=== PATIENT | male | born 1975 | race Caucasian/White ===

== ENCOUNTER 2019-04-06 10:19 | Emergency (ER) | payer OTHER, SELFPAY ==
[2019-04-06 10:43] VITALS: BP 137/86; PULSE 83; RESP 14; TEMP 36.6; O2SAT 100
--- NOTE | 2019-04-06 10:58 | ED.URI ---
HPI - URI/Sore Throat General Chief Complaint: Upper Respiratory Infection Stated Complaint: Cold Time Seen by Provider: 04/06/19 10:58 Source: patient and RN notes reviewed History of Present Illness HPI Narrative: Patient is a 43-year-old male that presents the urgent care with complaints of cold . Patient also reports of congestion for 1 week and slight fatigue. Patient states he developed a cough yesterday and noticed some shortness of breath last night. Patient denies any wheezing, fever, nausea, vomiting. Patient states he is used 1 dose of DayQuil and 1 spray of Flonase since his symptoms started. No other acute complaints. No distress noted. Patient read the plan of care. Related Data Home Medications Medication Instructions Recorded Confirmed atorvastatin 10 mg tablet 10 mg PO DAILY 03/01/19 loratadine 10 mg tablet 10 mg PO DAILY 03/01/19 omeprazole 40 mg capsule,delayed 40 mg PO DAILY 03/01/19 release trazodone 100 mg tablet 100 mg PO DAILY tablet 03/01/19 verapamil 40 mg tablet 40 mg PO BID tablet 03/01/19 Allergies Allergy/AdvReac Type Severity Reaction Status Date / Time No Known Allergies Allergy Verified 04/06/19 11:05 Review of Systems Review of Systems: Narrative: CONSTITUTIONAL: Denies fever, chills, or sweats. EYES: Denies visual changes, redness, or discharge. ENT: Reports of nasal congestion and runny nose CARDIOVASCULAR: Denies chest pain, palpitations, or edema. RESPIRATORY: Reports of cough with intermittent shortness of breath GASTROINTESTINAL: Denies abdominal pain, nausea, vomiting, or diarrhea. GENITOURINARY: Denies dysuria or hematuria. SKIN: Denies rash or itching. MUSCULOSKELETAL: Denies back pain, joint pain, or myalgia. NEUROLOGIC: Denies headache, numbness, or weakness. All other systems reviewed are negative, except as documented in HPI. PMFSH Social History Social History (Reviewed 03/01/19 @ 15:04 by Eleanor Little [facility]) Smoking status: Never smoker Alcohol intake: current Comments At the time of my signature, I reviewed and agree with the nursing past medical, surgical, social, and family history. There is no relevant family history pertinent to the patient complaint. Exam Narrative: Exam Narrative: GENERAL: This is a well-nourished, well-developed patient, in no apparent distress. HEAD: normocephalic, atraumatic. EYES: PERRL. Sclera clear/white. Vision is grossly intact. EARS: External ears normal, auditory canals clear and without drainage, TMs normal without perforation. Hearing grossly intact. NOSE: External nose normal with no obvious nasal discharge, nares without redness, no rhinorrhea. THROAT: Mucous membranes moist, posterior pharynx clear. Moderate postnasal drainage NECK: Neck supple CARDIOVASCULAR: Regular rate and rhythm without murmurs, gallops, or rubs. RESPIRATORY: Clear to auscultation. Breath sounds equal bilaterally. No wheezes, rales, or rhonchi. SKIN: warm, intact with no suspicious lesions or rash, good texture and turgor. NEURO: awake, alert, and oriented to person, place and time. There were no obvious focal neurologic abnormalities. EXTREMITIES: No clubbing, cyanosis, or edema. Course Vital Signs Vital signs: Vital Signs Temperature 97.8 F 04/06/19 10:43 Pulse Rate 83 04/06/19 10:43 Respiratory Rate 14 04/06/19 10:43 Blood Pressure 137/86 04/06/19 10:43 Pulse Oximetry 100 04/06/19 10:43 Temperature 97.8 F 04/06/19 10:43 Pulse Rate 83 04/06/19 10:43 Respiratory Rate 14 04/06/19 10:43 Blood Pressure 137/86 04/06/19 10:43 Pulse Oximetry 100 04/06/19 10:43 Reviewed MDM - URI/Sore Throat MDM Narrative Medical decision making narrative: Patient is aware that there is nothing bacterial to treat such as pneumonia or bacterial sinusitis, at this time. Advised the patient to treat his viral upper respiratory symptoms with [id number] medication such as Claritin/Zyrtec and Flonase shashi
== END 2019-04-06 11:18 | disposition home or self-care (01) ==
PROVIDERS: Emergency Provider Nurse Practitioner Family; PCP Family Medicine
DX: J06.9 Acute upper respiratory infection, unspecified (principal); E78.00 Pure hypercholesterolemia, unspecified; K21.9 Gastro-esophageal reflux disease without esophagitis; F41.9 Anxiety disorder, unspecified; F32.9 Major depressive disorder, single episode, unspecified
CPT/HCPCS: 99211; G0463

== ENCOUNTER 2020-07-31 14:37 | Emergency (ER) | payer OTHER, SELFPAY ==
[2020-07-31 14:45] VITALS: BP 143/90; PULSE 78; RESP 16; TEMP 36.7; O2SAT 99
--- NOTE | 2020-07-31 14:52 | ED.BACK ---
HPI - Back Pain/Injury General Chief Complaint: Back Pain/Injury Stated Complaint: Lower back pain Time Seen by Provider: 07/31/20 14:52 Source: patient and RN notes reviewed History of Present Illness HPI Narrative: Patient is a 45-year-old male who presents the urgent care with complaints of low back pain. Patient states he has chronic low back pain and he has had multiple x-rays that showed arthritis in the past. Patient states that he went swimming last Tuesday which exacerbated the pain. Patient has been taking Tylenol and ibuprofen with minimal improvement. Denies of any falls or known injury. No other acute complaints. No acute distress noted. Patient aware of the plan of care. Some parts of this dictation were generated by voice recognition software and may contain typographical and/or grammatical inaccuracies. Related Data Allergies Allergy/AdvReac Type Severity Reaction Status Date / Time No Known Allergies Allergy Verified 04/06/19 11:05 Review of Systems Review of Systems: Narrative: CONSTITUTIONAL: Denies fever, chills, or sweats. EYES: Denies visual changes, redness, or discharge. ENT: Denies rhinorrhea, congestion, sore throat, or otalgia. CARDIOVASCULAR: Denies chest pain, palpitations, or edema. RESPIRATORY: Denies cough or dyspnea. GASTROINTESTINAL: Denies abdominal pain, nausea, vomiting, or diarrhea. GENITOURINARY: Denies dysuria or hematuria. SKIN: Denies rash or itching. MUSCULOSKELETAL: Reports of acute on chronic low back pain NEUROLOGIC: Denies headache, numbness, or weakness. All other systems reviewed are negative, except as documented in HPI. [facility] Past Medical History Medical History (Updated 07/31/20 @ 15:18 by DEN Kendrick) Situational stress Family History Family History Father Hypertension Family history of elevated blood lipids Family history of malignant neoplasm Family history of malignant neoplasm of esophagus Mother Hypertension Family history of elevated blood lipids Social History Social History Smoking status: Never smoker Alcohol intake: current Gender identity (if verbalized by the patient): Male Comments At the time of my signature, I reviewed and agree with the nursing past medical, surgical, social, and family history. There is no relevant family history pertinent to the patient complaint. Exam Narrative: Exam Narrative: GENERAL: This is a well-nourished, well-developed patient, in no apparent distress. HEAD: normocephalic, atraumatic. EYES: PERRL. Sclera clear/white. Vision is grossly intact. EARS: External ears normal NOSE: External nose normal with no obvious nasal discharge, nares without redness, no rhinorrhea. THROAT: Mucous membranes moist NECK: Neck supple CARDIOVASCULAR: Regular rate and rhythm without murmurs, gallops, or rubs. RESPIRATORY: Clear to auscultation. Breath sounds equal bilaterally. No wheezes, rales, or rhonchi. SKIN: warm, intact with no suspicious lesions or rash, good texture and turgor. NEURO: awake, alert, and oriented to person, place and time. There were no obvious focal neurologic abnormalities. EXTREMITIES: No clubbing, cyanosis, or edema. BACK: Mild right lumbar tenderness with positive right SLE Course Vital Signs Vital signs: Vital Signs Temperature 98.1 F 07/31/20 14:45 Pulse Rate 78 07/31/20 14:45 Respiratory Rate 16 07/31/20 14:45 Blood Pressure 143/90 H 07/31/20 14:45 Pulse Oximetry 99 07/31/20 14:45 Temperature 98.1 F 07/31/20 15:10 Pulse Rate 78 07/31/20 15:10 Respiratory Rate 16 07/31/20 15:10 Blood Pressure 143/90 H 07/31/20 15:10 Pulse Oximetry 99 07/31/20 15:10 Reviewed-patient is informed that they may have pre-hypertension or hypertension based on a blood pressure reading in the department. I recommend the patient call the primar
[2020-07-31 15:10] VITALS: BP 143/90; PULSE 78; RESP 16; TEMP 36.7; O2SAT 99
== END 2020-07-31 15:25 | disposition home or self-care (01) ==
PROVIDERS: Emergency Provider Nurse Practitioner Family; PCP Family Medicine
DX: S39.012A Strain of muscle, fascia and tendon of lower back, initial encounter (principal); X58.XXXA Exposure to other specified factors, initial encounter; Y93.11 Activity, swimming; M54.31 Sciatica, right side; E78.00 Pure hypercholesterolemia, unspecified; I10 Essential (primary) hypertension; K21.9 Gastro-esophageal reflux disease without esophagitis; F41.9 Anxiety disorder, unspecified; F32.9 Major depressive disorder, single episode, unspecified
CPT/HCPCS: 99213; G0463

== ENCOUNTER → 2021-03-03 15:19 | Outpatient (CLI) | payer OTHER, SELFPAY ==
--- NOTE | ~2021-03-03 | US_ITS ---
EXAMINATION: US soft tissue lower back EXAM DATE: 03/03/2021 15:45 INDICATION: R22.2 - Localized swelling, mass and lump, trunk. Back pain. TECHNIQUE: Multiple grayscale and Doppler images of the symptomatic right lower back region were obta ined (by a technologist who performed the scan) and subsequently reviewed. FINDINGS: Ultrasound evaluation of the right back area of concern demonstrates normal-appearing skin, subcutane ous fat, underlying paraspinal musculature. No encapsulated lipoma, mass or fluid collection is ident ified. IMPRESSION: Unremarkable ultrasound exam. Reviewed, dictated and finalized at location G. [facility] [employer]FFA[employer] SPECIALIST
== END ==
PROVIDERS: PCP Family Medicine; Visit Provider Family Medicine
DX: R22.2 Localized swelling, mass and lump, trunk (principal)
CPT/HCPCS: 76705

== ENCOUNTER → 2021-11-03 13:28 | Outpatient (CLI) | payer OTHER, SELFPAY ==
--- NOTE | ~2021-11-03 | XR_ITS ---
XR lumbar spine min 4V DATE: 11/03/2021 13:43 INDICATION: Low back pain, right side. No sciatica. TECHNIQUE: AP, lateral, bilateral oblique views, coned lateral lumbosacral view COMPARISON: None FINDINGS: There is slight dextro scoliosis of the lumbar spine. No fracture or bone destruction, spon dylolysis or spondylolisthesis is detected. Lumbar and lumbosacral interspaces are well preserved. Th e included lower thoracic and lumbar pedicles are intact. The sacroiliac joints are normal. IMPRESSION: Slight lumbar dextroscoliosis Reviewed, dictated and finalized at location B.
== END ==
PROVIDERS: PCP Physician Assistant; Visit Provider Physician Assistant
DX: M54.50 Low back pain, unspecified (principal); M41.9 Scoliosis, unspecified
CPT/HCPCS: 72110

== ENCOUNTER 2022-02-01 11:58 | Emergency (ER) | payer OTHER, SELFPAY ==
--- NOTE | ~2022-02-01 | XR_ITS ---
Clinical Indication: Chest pain PA and lateral views of the chest: Comparison: None Findings: The lungs are clear, without evidence of focal consolidation or pleural effusion. Cardiome diastinal silhouette is within normal limits. Bones and soft tissues are unremarkable. Impression: Normal chest. Reviewed, dictated and finalized at location [] WORKER HEAD Impression: Normal chest.
[2022-02-01 12:01] VITALS: BP 140/97; PULSE 92; RESP 14; TEMP 36.1; O2SAT 100
--- NOTE | 2022-02-01 12:04 | ECG_ITS ---
Measurements Intervals [place] Rate: 83 P: 47 CA: 167 QRS: 10 QRSD: 86 T: 25 QT: 359 QTc: 423 Interpretive Statements SINUS RHYTHM NONSPECIFIC ST ABNORMALITY ABNORMAL ECG NO PREVIOUS ECG AVAILABLE FOR COMPARISON Electronically Signed On 02-01-2022 12:31:00 JAVA ANALYST by Richard Balderrama M.D.
[2022-02-01 12:22] LABS: Basophils Absolute Auto 0.1 K/mm3 (0.0-0.1); Basophils Percent Auto 0.6 % (0.2-1.2); Eosinophils Absolute Auto 0.2 K/mm3 (0-0.3); Eosinophils Percent Auto 1.7 % (0-4.4); Hematocrit 45.1 % (42.0-52.0); Hemoglobin 15.4 g/dL (14.0-18.0); Immature Granulocyte Absolute 0.04 K/mm3 (0.00-0.031); Immature Granulocyte Percent A 0.4 % (0-0.5); Lymphocytes Absolute Auto 1.78 K/mm3 (0.9-3.2); Lymphocytes Percent Auto 16.3 % (18.3-44.2); Mean Corpuscular HGB Conc 34.1 g/dl (32-36); Mean Corpuscular Hemoglobin 28.8 pg (26-34); Mean Corpuscular Volume 84.3 fl (80-100); Mean Platelet Volume 9.3 fl (7.4-10.4); Monocytes Absolute Auto 0.7 K/mm3 (0.1-0.6); Monocytes Percent Auto 6.2 % (2.6-8.5); Neutrophils Absolute Auto 8.2 K/mm3 (1.3-6.7); Neutrophils Percent Auto 74.8 % (45.5-73.1); Platelet Count Result 269 k/mm3 (150-375); Red Blood Count 5.35 M/mm3 (4.6-6.20); Red Cell Distribution Width 12.6 % (11.5-14.5); White Blood Count 10.9 K/mm3 (4.5-10.0)
[2022-02-01 12:30] LABS: Alanine Aminotransferase 56 U/L (6-50); Albumin Level 4.9 g/dL (3.5-5.1); Alkaline Phosphatase 103 U/L (38-126); Anion Gap 7 mmol/L (8-16); Aspartate Amino Transferase 38 U/L (17-59); Bilirubin,Total 0.6 mg/dL (0.2-1.3); Blood Urea Nitrogen 11 mg/dL (9-20); Calcium 8.5 mg/dL (8.4-10.2); Carbon Dioxide 26 mmol/L (22-30); Chloride 102 mmol/L (98-107); Estimated CRCL calculation 100 ml/min; Estimated Glomerular Filt Rate > 60; Glucose 94 mg/dL (65-110); Lipase 92 U/L (23-300); Potassium 3.9 mmol/L (3.4-5.0); Sodium 135 mmol/L (137-145)
[2022-02-01 12:34] LABS: INR 1.1; Prothrombin Time 13.4 Seconds (11.1-14.7)
[2022-02-01 12:35] LABS: Partial Thromboplastin Time 31.1 SECONDS (22.3-36.8)
[2022-02-01 12:40] LABS: Troponin I < 0.012 ng/mL (0.000-0.034)
[2022-02-01 14:02] VITALS: BP 130/89; PULSE 76; PULSE 83; RESP 18; O2SAT 97
[2022-02-01] MEDS: ASPIRIN 81 MG CHEWABLE TABLET 324 MG PO (14:41)
--- NOTE | 2022-02-01 15:22 | ED.CHESTPAIN ---
HPI - Chest Pain General Chief Complaint: Chest Pain Stated Complaint: chest pain Time Seen by Provider: 02/01/22 14:25 Source: patient and RN notes reviewed Mode of arrival: ambulatory Limitations: no limitations History of Present Illness HPI narrative: This is a 46 year old male with history of hyperlipidemia who presents for evaluation of chest pain. He states he was walking into work when he developed sharp chest pain across his chest that radiated to his neck and back. He states he sat down to rest and it last about 10 minutes. He reports his pain has significantly decreased and he only has pain to left chest currently. At onset of his pain, he had associated dizziness and shortness of breath. He denies diaphoresis. He denies previous history of chest pain or heart disease. He denies recent travel, leg swelling or calf pain. He reports father with heart disease in his 50s. Related Data Allergies Allergy/AdvReac Type Severity Reaction Status Date / Time No Known Allergies Allergy Verified 02/01/22 14:05 Review of Systems Constitutional: Constitutional: Denies weakness Cardiovascular: Cardiovascular: Denies syncope, Denies rapid heart rate, Denies irregular heart rhythm and Denies leg edema Respiratory: Respiratory: Denies chest congestion, Denies hemoptysis, Denies excessive phlegm production and Denies dyspnea Gastrointestinal: Gastrointestinal: Denies abdominal pain, Denies hematochezia, Denies diarrhea and Denies vomiting Genitourinary: Genitourinary: Denies hematuria, Denies dysuria, Denies penile discharge and Denies testicular pain Musculoskeletal: Musculoskeletal: Denies joint swelling, Denies loss of height and Denies muscle weakness Neurologic: Denies syncope, Denies focal weakness and Denies weakness PMFSH Past Medical History Medical History (Updated 02/01/22 @ 16:14 by Danica Valle MD) Pure hypercholesterolemia, unspecified Situational stress Family History Family History Father Hypertension Family history of elevated blood lipids Family history of malignant neoplasm Family history of malignant neoplasm of esophagus Mother Hypertension Family history of elevated blood lipids Social History Social History Smoking status: Never smoker Alcohol intake: current Gender identity (if verbalized by the patient): Male Exam Narrative: GENERAL: Well-appearing, well-nourished, and in no acute distress. HEAD: Normocephalic, atraumatic EYES: PERRLA and EOMI, conjunctiva clear without discharge THROAT:Mucous membranes moist, Oropharynx normal without erythema, exudate, peritonsillar swelling or fluctuance NECK: Supple, without lymphadenopathy or mass RESPIRATORY: No respiratory distress, Airway patent, Respirations non-labored, Clear to auscultation without rales, rhonchi or wheeze HEART: Regular rate and rhythm. No murmur heard. Normal peripheral pulses. ABDOMEN: Soft, nontender, nondistended, normal active bowel sounds. No masses. No rebound or guarding, No organomegaly. EXTREMITIES: No edema, normal strength with full range of motion. SKIN: Warm, dry, normal color without rash NEURO: Alert and oriented x3. CN 2-12 grossly intact. No focal deficits. PSYCH: Normal mood and affect. Neuro: Speech: No Abnormal speech present Course Reevaluation(s) Reevaluation #1: Patient's chest pain has completely resolved. He has had negative troponin x 2. This does not seem to be anginal. He has negative d dimer. He does not have risk factors for Aortic aneurysm or dissection. I Discussed observation admission vs outpatient evaluation. After discussion with PCP and cardiology he is comfortable with discharge home. HE was given return precautions. Date: 02/01/22 Time: 16:12 Consultations Consultation #1: I spoke with Meeta Castillo about patient and I discussed I wo
[2022-02-01 15:36] LABS: Troponin I < 0.012 ng/mL (0.000-0.034)
[2022-02-01 15:41] VITALS: BP 134/93; PULSE 70; RESP 12; O2SAT 100
[2022-02-01 16:15] VITALS: BP 142/99; PULSE 70; RESP 15; O2SAT 100
== END 2022-02-01 16:34 | disposition home or self-care (01) ==
PROVIDERS: Emergency Medicine; Emergency Provider General Practice; PCP Family Medicine
DX: R07.9 Chest pain, unspecified (principal); E78.00 Pure hypercholesterolemia, unspecified; R94.31 Abnormal electrocardiogram [ECG] [EKG]
CPT/HCPCS: 36415; 71046; 80053; 83690; 84484; 85025; 85380; 85610; 85730; 93005; 99284; A9270

== ENCOUNTER 2023-06-06 12:03 | Emergency (ER) | payer OTHER, SELFPAY ==
[2023-06-06 12:08] VITALS: BP 142/81; PULSE 81; RESP 20; TEMP 36.7; O2SAT 100
[2023-06-06 12:13] VITALS: BP 142/81; PULSE 81; RESP 20; TEMP 36.7; O2SAT 100
--- NOTE | 2023-06-06 12:17 | ED.GENADULT ---
HPI - General Adult General Chief complaint: Upper Respiratory Infection Stated complaint: Congestion/Chest Congestion/Cough Source: patient, RN notes reviewed and old records reviewed Mode of arrival: ambulatory Limitations: no limitations History of Present Illness HPI narrative: 47-year-old male patient presents [facility] with complaint of productive cough, congestion, myalgia this started 8 days ago. Patient taking [id number] medications with no relief. Patient states is now coughing up thick yellow discharge and has thick yellow nasal discharge. Related Data Allergies Allergy/AdvReac Type Severity Reaction Status Date / Time No Known Allergies Allergy Verified 06/06/23 12:12 Review of Systems Constitutional: Constitutional: Reports no additional constitutional complaints, Denies body ache(s), Denies chills, Denies fatigue, Denies fever(s) and Denies headache(s) Eyes: Eyes: Reports no additional eye complaints and Denies blurry vision ENT: Reports system reviewed and no additional complaints, except as documented, Denies vertigo, Denies dizziness, Denies ear discharge, Denies otalgia, Denies facial pain, Denies headache(s), Reports nasal congestion, Reports nasal discharge, Reports sinus pain, Reports sinus pressure and Denies sore throat Cardiovascular: Cardiovascular: Reports no additional cardiovascular complaints, Denies chest pain, Denies chest pain at rest, Denies rapid heart rate and Denies dyspnea Respiratory: Respiratory: Reports no additional respiratory complaints, Reports chest congestion, Reports cough, Denies pain on inspiration, Denies pain with cough and Denies dyspnea Gastrointestinal: Gastrointestinal: Denies abdominal pain, Denies diarrhea, Denies nausea and Denies vomiting Integumentary/Breasts: Skin/Breast: Denies rash Neurologic: Reports system reviewed and no additional complaints, except as documented, Denies vertigo, Denies dizziness and Denies headache(s) Endocrine: Endocrine: Denies fatigue PMFSH Past Medical History Medical History Pure hypercholesterolemia, unspecified Situational stress Family History Family History Father Hypertension Family history of elevated blood lipids Family history of malignant neoplasm Family history of malignant neoplasm of esophagus Mother Hypertension Family history of elevated blood lipids Social History Social History Smoking status: Never smoker Alcohol intake: current Lack of Transportation: No Lack of Food: Never True Current Housing: I Have Housing Concerned About Future Housing: No Difficulty Paying Gas/Electric Bills: No Difficulty Paying for Meds: No Currently Unemployed: No Education: Bachelor's Degree Difficulty w/ Childcare or Family Care: No Gender identity (if verbalized by the patient): Male Comments At the time of my signature, I reviewed and agree with the nursing past medical, surgical, social, and family history. There is no relevant family history pertinent to the patient complaint. Exam Const: General: cooperative, healthy appearing, no acute distress and well nourished Nutritional Appearance: well nourished Orientation/consciousness: patient oriented x3 Limitations: no limitations HENMT: Head: normal to inspection and normocephalic Ears: external ears normal, TM's normal bilaterally, EAC's normal and mastoids normal Face/Nose/Sinus: Abnormal mucous membranes and turbinates present boggy and erythematous and normal facial exam Face and sinus: normal facial exam Mouth: Yes Normal oral and palatal mucosa present, Yes oropharynx normal and Yes moist mucous membranes Throat: tonsils normal, uvula midline, normal tonsils, no peritonsillar masses, normal posterior oropharynx, postnasal drainage and no uvular edema Eyes:
== END 2023-06-06 12:27 | disposition home or self-care (01) ==
PROVIDERS: Emergency Provider Registered Nurse; PCP Family Medicine
DX: J01.90 Acute sinusitis, unspecified (principal); E78.00 Pure hypercholesterolemia, unspecified
CPT/HCPCS: 99213; G0463

== ENCOUNTER 2023-08-10 07:25 | Day surgery (SDC) | payer OTHER, SELFPAY ==
[2023-07-05 09:08] VITALS: BMI 28.8
[2023-08-01 12:07] VITALS: BMI 27.8
--- NOTE | 2023-08-10 07:27 | P.PNAN_ITS ---
Anes - Initial Pre Proc Eval Procedure: Operation Date: 08/10/23 10:00 Proposed Procedures p Screening Colonoscopy - Lucien Woody MD Date/Time: 08/10/23 07:27 Surgeon: Lucien Woody MD Pre Op Diagnosis: Neoplasm Screening Patient Data Age: 48 Gender: M Height: 1.83 m Weight: 93 kg Allergies Allergy/AdvReac Type Severity Reaction Status Date / Time No Known Allergies Allergy Verified 08/10/23 08:47 Home Medications Medication Instructions Recorded Confirmed Type verapamil 40 mg tablet 40 mg PO TID #270 tabs 02/21/23 08/10/23 Rx trazodone 100 mg tablet 100 mg PO DAILY #90 tabs 05/10/23 08/10/23 Rx atorvastatin 20 mg tablet 20 mg PO DAILY #90 tabs 05/11/23 08/10/23 Rx omeprazole 40 mg capsule,delayed 40 mg PO DAILY 08/01/23 08/10/23 History release Patient hx anesthesia problems: none Family hx anesthesia problems: none Results Review: All pre-operative results and documents have been reviewed as part of the pre- operative evaluation. [facility] Past Medical History Medical History (Updated 08/10/23 @ 08:55 by Lucien Woody MD) Asthma Hypertension Pure hypercholesterolemia, unspecified Situational stress Family History Family History Father Hypertension Family history of elevated blood lipids Family history of malignant neoplasm Family history of malignant neoplasm of esophagus Mother Hypertension Family history of elevated blood lipids Social History Social History Smoking status: Never smoker Alcohol intake: current Drinks per week: 5 Substance use type: does not use Lack of Transportation: No Lack of Food: Never True Current Housing: I Have Housing Concerned About Future Housing: No Difficulty Paying Gas/Electric Bills: No Difficulty Paying for Meds: No Currently Unemployed: No Education: Bachelor's Degree Difficulty w/ Childcare or Family Care: No Living arrangements: with family Gender identity (if verbalized by the patient): Male Spiritual care concerns: No Anes - Eval Final PreProcedure Day of Procedure 08/10/23 07:27 Patient weight: overweight Heart: regular rate and rhythm Lungs: clear to auscultation Airway: Mallampati scale class II Neurological: alert and oriented Last oral intake: >/= 8 hours ASA classification: II Emergent: no Anesthetic plan: proceed Anesthesia type and monitoring: general GIVS and standard monitoring Results Review: All pre-operative results and documents have been reviewed as part of the pre- operative evaluation. Informed Consent: The patient's anesthetic plan and its attendant risks and benefits were discussed with the patient/family/POA. Questions were solicited and answers provided to the satisfaction of the patient/family/POA.
[2023-08-10 08:50] VITALS: BP 116/82; PULSE 63; RESP 18; TEMP 36.3; O2SAT 98; BMI 27.9
--- NOTE | 2023-08-10 08:54 | PM.HPGS ---
History of Present Illness History of Present Illness Consent: Risks, benefits, and alternatives have been discussed and questions answered. Patient agrees to proceed with procedure. Chief complaint: Neoplasm Screening Narrative: Alex Cast is a 48 year old male presents for screening colonoscopy. Patient's current weight appetite and bowel movements are normal. Patient denies abdominal pain. He has had no bleeding. He denies any change in bowel habit Review of Systems Review of Systems: All systems reviewed & are unremarkable except as noted in HPI and below PMFSH Past Medical History Medical History (Updated 08/10/23 @ 08:55 by Lucien Woody MD) Asthma Hypertension Pure hypercholesterolemia, unspecified Situational stress Family History Family History Father Hypertension Family history of elevated blood lipids Family history of malignant neoplasm Family history of malignant neoplasm of esophagus Mother Hypertension Family history of elevated blood lipids Social History Social History Smoking status: Never smoker Alcohol intake: current Drinks per week: 5 Substance use type: does not use Lack of Transportation: No Lack of Food: Never True Current Housing: I Have Housing Concerned About Future Housing: No Difficulty Paying Gas/Electric Bills: No Difficulty Paying for Meds: No Currently Unemployed: No Education: Bachelor's Degree Difficulty w/ Childcare or Family Care: No Living arrangements: with family Gender identity (if verbalized by the patient): Male Spiritual care concerns: No Meds Home Medications and Allergies Home Medications Medication Instructions Recorded Confirmed Type verapamil 40 mg tablet 40 mg PO TID #270 tabs 02/21/23 08/10/23 Rx trazodone 100 mg tablet 100 mg PO DAILY #90 tabs 05/10/23 08/10/23 Rx atorvastatin 20 mg tablet 20 mg PO DAILY #90 tabs 05/11/23 08/10/23 Rx omeprazole 40 mg capsule,delayed 40 mg PO DAILY 08/01/23 08/10/23 History release Allergies Allergy/AdvReac Type Severity Reaction Status Date / Time No Known Allergies Allergy Verified 08/10/23 08:47 Vital Signs Vital Signs - 24 hr 08/10/23 08:50 Temperature 97.4 F L Pulse Rate 63 Respiratory Rate 18 Blood Pressure 116/82 Pulse Oximetry 98 Oxygen Delivery Room Air Exam Narrative: Physical exam reveals patient Rafael signs stable. HEENT exam is unremarkable. Patient is anicteric. Lungs are clear to auscultation and to percussion is without murmur or is sounds. Abdomen bowel sounds are present soft nontender with no organomegaly. Digital external rectal exam normal. Assessment and Plan Assessment and plan (1) Screen for colon cancer: Code(s): Z12.11 - Encounter for screening for malignant neoplasm of colon Status: Acute Assessment and Plan: Patient presents for colon cancer screening colonoscopy. Further recommendations may be given after endoscopy.
[2023-08-10] MEDS: LACTATED RINGERS 1,000 ML 150 ML IV CONT (08:59)
[2023-08-10 10:10] VITALS: BP 116/73; PULSE 59; RESP 14; O2SAT 99
[2023-08-10 10:17] VITALS: BP 113/76; PULSE 58; RESP 16; O2SAT 99
[2023-08-10 10:27] VITALS: BP 117/78; PULSE 62; RESP 16; O2SAT 99
--- NOTE | 2023-08-10 14:13 | WPDANESPN ---
Anes - Prog Note Post-Op Date/Time: 08/10/23 14:13 Cardiovascular status: normal Respiratory status: normal Airway patency: baseline Mental status: baseline Post-Op hydration status: normal Vital Signs: Last Vital Signs Temp 36.3 C L 08/10/23 08:50 Pulse 62 08/10/23 10:27 Resp 16 08/10/23 10:27 BP 117/78 08/10/23 10:27 Pulse Ox 99 08/10/23 10:27 O2 Del Method Room Air 08/10/23 10:27 Pain Score (VAS): 0 I/O: Intake & Output 08/09/23 08/10/23 08/10/23 23:59 07:59 15:59 Intake Total 350 Balance 350 Post-procedural complaints: none Patient Feedback: Patient satisfied with anesthetic care. Other Findings: Patient vital signs back to baseline. Patient denies nausea and vomiting. Patient's pain under control. Patient OK for discharge.
== END 2023-08-10 10:37 | disposition home or self-care (01) ==
PROVIDERS: PCP Family Medicine; Visit Provider Internal Medicine Gastroenterology
PROC: 0DJD8ZZ Inspection of Lower Intestinal Tract, Via Natural or Artificial Opening Endoscopic (ICD-10-PCS; CPT 45378; principal; 2023-08-10 10:00)
DX: Z12.11 Encounter for screening for malignant neoplasm of colon (principal); D12.2 Benign neoplasm of ascending colon; K64.8 Other hemorrhoids
CPT/HCPCS: 45385

== ENCOUNTER 2023-08-10 09:58 | Outpatient (NON) | payer OTHER, SELFPAY | END 2023-08-10 09:59 | disposition home or self-care (01) | LOC: ANHLAB 08-11 10:01 | PROVIDERS: PCP Family Medicine; Visit Provider Internal Medicine Gastroenterology | DX: Z12.11 Encounter for screening for malignant neoplasm of colon (principal) | CPT/HCPCS: 88305 ==

== ENCOUNTER 2024-08-24 10:42 | Outpatient (CLI) | payer OTHER, SELFPAY ==
--- NOTE | ~2024-08-24 | XR_ITS ---
3 VIEWS LUMBAR SPINE Ordering provider: Gopal Villalta MD History: . M54.9 - Dorsalgia, unspecified . Comparison: November 03, 2021 FINDINGS: VERTEBRAL BODIES:Mild dextroscoliosis. No visible fracture or subluxation. DISK SPACES: Normal. SOFT TISSUES: Normal. IMPRESSION: No acute osseous abnormality lumbar spine. Mild dextroscoliosis. Reviewed, dictated and finalized at location A.
== END 2024-08-24 10:43 | disposition home or self-care (01) ==
LOC: GOSHIMG 10:42
PROVIDERS: PCP Family Medicine; Visit Provider Family Medicine
DX: M41.9 Scoliosis, unspecified (principal)
CPT/HCPCS: 72110